=== PATIENT | male | born 1965 | race Caucasian/White ===

== ENCOUNTER 2021-09-21 05:52 | Observation (INO) ==
--- NOTE | 2021-08-23 12:55 | PAT Medication Instructions ---
Medication Instructions Date of Service August 23, 2021 Home Medications aspirin 81 mg tablet,delayed release (Adult Aspirin Regimen) 81 mg PO QAM lisinopril 10 mg tablet 10 mg PO QAM metronidazole 0.75 % topical gel 1 appln TOP BID Centrum Silver 1 tab PO QAM calcium carbonate 600 mg-vitamin D3 10 mcg (400 unit) tablet (Calcium with Vitamin D) 1 tab PO BID cetirizine 10 mg capsule (Zyrtec) 10 mg PO QAM PRN azelastine 137 mcg (0.1 %) nasal spray aerosol 2 spray INTRANASAL QAM PRN ASK your prescriber and surgeon aspirin 81 mg tablet,delayed release (Adult Aspirin Regimen) 81 mg PO QAM STOP taking 24 hours before surgery metronidazole 0.75 % topical gel 1 appln TOP BID DO NOT take the morning of surgery lisinopril 10 mg tablet 10 mg PO QAM Centrum Silver 1 tab PO QAM calcium carbonate 600 mg-vitamin D3 10 mcg (400 unit) tablet (Calcium with Vitamin D) 1 tab PO BID Take morning of surgery With a small sip of water, OTHERWISE NOTHING TO EAT OR DRINK AFTER MIDNIGHT: cetirizine 10 mg capsule (Zyrtec) 10 mg PO QAM PRN (if needed) azelastine 137 mcg (0.1 %) nasal spray aerosol 2 spray INTRANASAL QAM PRN (if needed) Take evening before surgery calcium carbonate 600 mg-vitamin D3 10 mcg (400 unit) tablet (Calcium with Vitamin D) 1 tab PO BID Other Notes If you have any questions please call us at [phone] or [phone] or [phone] or [phone]
--- NOTE | 2021-08-26 09:42 | Anesthesiology Consultation ---
Date of Service August 26, 2021 Assessment & Plan (1) Encounter for pre-operative examination: - radiological technician 07/29/21 [place]: "...We previously cleared his allergies to penicillin and Lomotil. However, he had a positive skin test to guaifenesin and dextromethorphan in combination. I recommended he just avoid these moving forward. However, if there is a need to further sort this out we can get a cold medicine preparation that has each 1 individually so we can determine exactly what he is allergic to..." - COVID screening: Per assessment on 08/26/2021: Travel screen-[email or web address] 08/21-08/22, no known COVID-19 positive contacts or current COVID- 19 related symptoms in past 2 weeks. Pt vaccinated. Surgeon arranging preop COVID testing, scheduled 09/17/2021. Awaiting results. Chart Review Chart Review: Acceptable Risk for Surgery and Patient seen in Pre Admission Testing Teaching & Discussion Pre-Anesthesia Teaching/Discussion Notes: Instructed NPO after midnight before surgery, except medications with 15 cc of water. Medication instructions provided according to the PAT guidelines. History Surgery Operation Date: 09/21/21 07:30 Proposed Procedures p Robotic Laparoscopic Assisted Radical Retropubic Prostatectomy, Possible Open, Possible Pelvic Lymph Node Dissection, Possible Suprapubic Tube Placement - Pacheco Rocha MD Height/Weight Height: 5 ft 8 in Weight: 79.5 kg Allergies Allergy/AdvReac Type Severity Reaction Status Date / Time dextromethorphan Allergy positive Verified 08/26/21 09:39 skin test guaifenesin [From Mucinex] Allergy as a Verified 08/23/21 08:32 child, rash -> allergy tested confirmed Medications Home Medications Medication Instructions Recorded Confirmed Last Taken aspirin 81 mg tablet,delayed 81 mg PO QAM 02/05/19 08/23/21 Unknown release (Adult Aspirin Regimen) lisinopril 10 mg tablet 10 mg PO QAM 02/05/19 08/23/21 Unknown metronidazole 0.75 % topical gel 1 appln TOP BID 02/05/19 08/23/21 Unknown multivit with min-folic 1 tab PO QAM 03/29/19 08/23/21 Unknown acid-lutein 400 mcg-250 mcg chewable tablet (Centrum Silver) calcium carbonate 600 mg-vitamin 1 tab PO BID 07/21/21 08/23/21 Unknown D3 10 mcg (400 unit) tablet (Calcium with Vitamin D) cetirizine 10 mg capsule (Zyrtec) 10 mg PO QAM PRN 07/21/21 08/23/21 Unknown azelastine 137 mcg (0.1 %) nasal 2 spray INTRANASAL QAM PRN 08/23/21 08/23/21 Unknown spray aerosol Past Medical History Medical History (Updated 08/26/21 @ 09:54 by Deborah Montoya PA-C) Allergic rhinitis BPH (benign prostatic hyperplasia) H/O allergy to penicillin negative allergy test. Hypertension controlled, stable per pt Prostate cancer (06/18/21) Patient denies h/o stroke, seizures, heart attack, heart failure, DM, blood clots or blood transfusions. Exercise / Class Metabolic Activity II 4-5 Yardwork/Stairs/Walk up hill (denies CP or SOB with 1 FOS) Past Family History Family History Mother , 80yo Kidney stones Colorectal cancer Pacemaker Stroke Mini stroke Sister Kidney stones Grandfather Cancer Lung Father Hypertension Stroke Mini stroke Brother No problems noted. Brother No problems noted. Other No family history of adverse response to anesthesia Past Surgical History Surgical History History of colonoscopy Past Anesthesia History No Hx of Anesthesia Complications and No Family Hx of Anesthesia Complications History of PONV No Hx of PONV and No Hx of Motion Sickness Social History Smoking Status: Never smoker Do You Dip or Chew Tobacco: No Hx Alcohol Use: Yes alcohol intake frequency: a few times a month Hx Substance Use: No substance use type: does not use Review of Systems Patient denies chest pain, shortness of breath, dyspnea on exertion, snoring, witnessed apneas, reflux, fever, chills, cough, wheezing, or palpitations. Physical Exam Vital Signs Vitals BP 127/86 P 67 TEMP 98.6 SP02 99% on RA RESP 17 Physical Full cervical extension range of motion without pain TMD 3.5 finger breaths Mallampati Score 2 Dentition: intact, several missing teeth; denies chipped or loose teeth, caps/crowns, implants or bridges Lungs: normal respiratory effort. Clear throughout to auscultation, no adventitious breath sounds Cardiac: regular rate and rhythm, no murmurs noted Carotid arteries: negative bruit bilat Lab Results Anesthesia Preop Results Results Anesthesia Widget: WBC 4.86 K/uL (4.8-10.8) 08/26/21 Hgb 14.7 g/dL (14.0-18.0) 08/26/21 Hct 44.2 % (42-52) 08/26/21 Plt 270 K/uL (130-400) 08/26/21 Na 136 mmol/L (136-145) 08/26/21 K 4.2 mmol/L (3.5-5.1) 08/26/21 Cl 100 mmol/L (98-107) 08/26/21 CO2 31 mmol/L (21-32) 08/26/21 BUN 15 mg/dl (6-23) 08/26/21 Creat 1.07 mg/dl (0.6-1.4) 08/26/21 Glucose Level 84 mg/dl (70-99(Fasting)) 08/26/21 Urine Color Yellow 08/26/21 Urine Appearance Clear (Clear) 08/26/21 Urine pH 8.0 (4.5-7.5) H 08/26/21 Urine Specific Mikana 1.005 (1.000-1.030) 08/26/21 Urine Protein Negative (Negative) 08/26/21 Urine Glucose (UA) Negative (Negative) 08/26/21 Urine Ketones Negative (Negative) 08/26/21 Urine Blood Negative (Negative) 08/26/21 Urine Nitrite Negative (Negative) 08/26/21 Urine Bilirubin Negative (Negative) 08/26/21 Urine Urobilinogen Negative (Negative) 08/26/21 Urine Leukocyte Esterase Negative (Negative) 08/26/21 Blood Type B Negative 08/26/21 Antibody Screen NEGATIVE 08/26/21 Testing Electrocardiogram Date: 08/26/21 NSR, rate 67 bpm Chest X-Ray Date: 08/26/21 Lung volumes are normal. Lungs are clear. There is no pneumothorax or pleural effusion. Cardiac size is normal. Mediastinal contours are normal. There is no evidence for pulmonary edema. Mild S-shaped scoliosis of the thoracic spine is incidentally noted. IMPRESSION: No acute cardiopulmonary findings. Other Testing Bone scan nuclear medicine 07/05/21 IMPRESSION: No suspicious areas of radiotracer uptake within the axial or appendicular skeleton to suggest metastatic disease.
[2021-09-21] MEDS ORDERED: LR 15ML/HR IV SCH (06:00)
[2021-09-21] MEDS ORDERED: LACTATED RINGER'S 1,000 ML IV SCH (06:00)
[2021-09-21] MEDS ORDERED: HEPARIN SOD 5,000 UNIT/0.5 ML VIAL SQ SCH (06:00)
[2021-09-21] MEDS ORDERED: ePHEDrine sulfate 50 MG/ML AMP IV PRN (07:00)
[2021-09-21] MEDS ORDERED: fentaNYL citrate 100 MCG/2 ML VIAL IV PRN (07:00)
[2021-09-21] MEDS ORDERED: ATROPINE SULFATE 0.1 MG/ML 10ML SYR IV PRN (07:00)
[2021-09-21] MEDS ORDERED: ONDANSETRON INJ 2 MG/ML 2 ML VIAL IV PRN ×2 (07:00→12:28)
[2021-09-21] MEDS ORDERED: DEXAMETHASONE SOD INJ 4 MG/ML VIAL ONE (07:04)
[2021-09-21] MEDS ORDERED: ONDANSETRON INJ 2 MG/ML 2 ML VIAL ONE (07:04)
[2021-09-21] MEDS ORDERED: ROCURONIUM BROMIDE 10 MG/ML 5 ML VIAL IV ONE ×5 (07:04→09:08)
[2021-09-21] MEDS ORDERED: PROPOFOL IV EMULSION 10 MG/ML 20 ML VIAL IV ONE (07:04)
[2021-09-21] MEDS ORDERED: PHENYLEPHRINE 100MCG/ML 5ML SYR ONE (07:04)
[2021-09-21] MEDS ORDERED: ePHEDrine sulfate 50 MG/ML SYR ONE (07:04)
[2021-09-21] MEDS ORDERED: NEOSTIGMINE METHYLSULFATE 1 MG/ML 10ML VIAL ONE (07:04)
[2021-09-21] MEDS ORDERED: GLYCOPYRROLATE 0.2 MG/ML VIAL ONE (07:04)
[2021-09-21] MEDS ORDERED: LIDOCAINE 2% MPF LOCAL 5 ML VIAL INFIL ONE (07:04)
[2021-09-21] MEDS ORDERED: fentaNYL citrate 100 MCG/2 ML VIAL ONE (07:05)
[2021-09-21] MEDS ORDERED: MIDAZOLAM HCL 1 MG/ML 2ML VIAL ONE (07:05)
[2021-09-21] MEDS ORDERED: BUPIVACAINE 0.5 % 5 MG/1 ML MPF 30ML VIAL ONE (07:18)
--- NOTE | 2021-09-21 07:25 | History & Physical Report ---
Date of Service September 21, 2021 Assessment & Plan (1) Prostate cancer: Plan Presenting for robotic prostatectomy risks, benefits, and expectations reviewed History of Present Illness Primary Care Provider: Diogenes Pope MD Prostate cancer presenting for prostatectomy Allergies Allergy/AdvReac Type Severity Reaction Status Date / Time dextromethorphan Allergy positive Verified 09/21/21 06:44 skin test guaifenesin [From Mucinex] Allergy as a Verified 09/21/21 06:44 child, rash -> allergy tested confirmed Home Medications Medication Instructions Recorded Confirmed Type aspirin 81 mg tablet,delayed 81 mg PO QAM 02/05/19 09/21/21 History release (Adult Aspirin Regimen) lisinopril 10 mg tablet 10 mg PO QAM 02/05/19 09/21/21 History metronidazole 0.75 % topical gel 1 appln topical BID 02/05/19 09/21/21 History multivit with min-folic 1 tab PO QAM 03/29/19 09/21/21 History acid-lutein 400 mcg-250 mcg chewable tablet (Centrum Silver) calcium carbonate 600 mg-vitamin 1 tab PO BID 07/21/21 09/21/21 History D3 10 mcg (400 unit) tablet (Calcium with Vitamin D) cetirizine 10 mg capsule (Zyrtec) 10 mg PO QAM PRN seasonal allergies 07/21/21 09/21/21 History azelastine 137 mcg (0.1 %) nasal 2 spray intranasal QAM PRN 08/23/21 09/21/21 History spray aerosol seasonal congestion Past Med/Surg History Medical History Allergic rhinitis BPH (benign prostatic hyperplasia) H/O allergy to penicillin negative allergy test. Hypertension controlled, stable per pt Prostate cancer (06/18/21) Surgical History History of colonoscopy Family History Mother , 80yo Kidney stones Colorectal cancer Pacemaker Stroke Mini stroke Sister Kidney stones Grandfather Cancer Lung Father Hypertension Stroke Mini stroke Brother No problems noted. Brother No problems noted. Other No family history of adverse response to anesthesia Social History (Updated 07/21/21 @ 09:09 by Reta Garza RN) Smoking Status: Never smoker Second Hand Exposure: No; Do You Dip or Chew Tobacco: No; Tobacco Cessation Education Requested by Patient: No Hx Alcohol Use: Yes Hx Substance Use: No Preferred Language: Kosovan Communication Ability: Effective Visual Impairment: No Limitations Hearing Ability: Normal Bench Assembler Required: No Beliefs That Will Affect Care: None marital status: Single Current Living Situation: Parent Current Living Situation Comment: father lives with patient current occupational status: retired current occupation: From [employer] How many Children do You have: 0 Other Information That Helps Us Care for You: No Feels Safe at Home: Yes Safety Concerns: Feels Safe At This Time caffeine: No during the past year weight has: remained stable Assistive Devices: Glasses Physical Exam Constitutional: well developed and well nourished Neck: neck nontender Respiratory: normal respiratory effort; no respiratory distress and does not use accessory muscles Cardiovascular: Rate/Rhythm: regular rate Vessels: radial pulses present Extremities: no edema Gastrointestinal (Abdomen): Inspection/Auscultation: abdomen normal to inspection Percussion/Palpation: abdomen soft; abdomen nontender and no guarding Musculoskeletal: Head/Neck/Chest: normocephalic and head atraumatic Extremi ties: extremities normal to inspection Skin: no rashes and no lesions Trauma: no evidence of skin trauma Neurologic: awake; not obtunded Speech / Cognition: normal speech Motor/Sensory: no tremor Psychiatric: Orientation: alert and oriented x 3 Genitourinary: no CVA tenderness Lymphatic: no lymphadenopathy Results & Data ([facility]) Vital Signs (Past 12 Hours) Vital Signs Temp Pulse Resp BP Pulse Ox O2 Del Method 09/21/21 06:10 37 C 81 18 149/99 H 98 Room Air
[2021-09-21] MEDS ORDERED: BELLADONNA/OPIUM SUPP 60 MG SUPP PR ONE ×2 (07:51→08:53)
[2021-09-21] MEDS ORDERED: HYDROmorphone INJ 2 MG/ML SYR/VIAL ONE (08:02)
[2021-09-21] MEDS ORDERED: SURGICEL ABSORB HEMOSTAT 2IN X 14IN TOP ONE (09:00)
[2021-09-21] MEDS ORDERED: FLOSEAL HEMOSTATIC MATRIX 10ML TOP ONE (09:54)
--- NOTE | 2021-09-21 11:13 | Operative Report ---
PG Post Operative Report Pre & Post Diagnosis Operation Date: 09/21/21 07:30 Pre-Op Diagnosis: Prostate Cancer Post-Op Diagnosis: Prostate Cancer I identified the patient and participated in the time-out.: Yes Procedure Operation Date: 09/21/21 07:30 Actual Procedures p Robotic Laparoscopic Assisted Radical Retropubic Prostatectomy with Pelvic Lymph Node Dissection(Not Applicable) - Pacheco Rocha MD Surgeon Pacheco Rocha MD Professional Golf Tournament Player Dolores Mace Estimated Blood Loss 100 Findings Consistent with Post-Op Diagnosis Specimens 1. Prostate and seminal vesicles 2. Periprostatic fat 3. Left pelvic lymph nodes 4. Right pelvic lymph nodes Description of Procedure The patient was identified in the preoperative holding area, appropriate informed consents were reviewed and completed, and he was transported to the operating suite. Subcutaneous heparin was administered in the pre-operative holding area. Upon arrival in the operating suite, he received appropriate antibiotics and general anesthesia. He was positioned in dorsal lithotomy, a B&O suppository was inserted after digital rectal exam, and he was prepped and draped in standard fashion. A Jensen catheter was inserted in the sterile field. A Veress needle was passed per umbilicus with uniform insufflation of the abdomen to 15mmHg. He was placed in steep Trendelenburg position. A periumbilical incision was then made to accommodate a 12mm Visiport with 10mm 0degree laparoscope. Inspection of the abdomen was carried out, and there was no evidence of traumatic entry or injury secondary to the Veress needle. After confirming a clear anterior abdominal wall, ports were subsequently placed in standard robotic prostatectomy fashion without incident. To begin the robotic portion of the case, the left lateral aspect of the sigmoid was mobilized off of the left pelvic side wall to allow the pouch of Darren to be appropriately visualized. I then made an incision in the pouch of Darren, overlying the seminal vesicles. Both SVs as well as the ampullae of the vasa were entirely dissected, with the vasa transected 3cm from the prostate. The medial umbilical ligaments were then controlled with bipolar electrocautery just inferior to the umbilicus. Following cauterization, they were divided utilizing monopolar cautery. A peritoneal incision was carried from this location to the medial aspect of the internal inguinal rings bilaterally with care to avoid opening through the ring. This incision was concluded when the vas deferens was reached. Dissection of the bladder and prostate off of the posterior aspect of the pubic arch was completed allowing full visualization of the prostate. The fat overlying the prostate was removed en bloc and passed off the table as a specimen labeled "periprostatic fat". The endopelvic fascia was cleared during this portion of the procedure, and subsequently opened - first on the right and then the left. The incision through the endopelvic fascia began near the prostate-bladder junction and was carried to the apex with extreme care to preserve all lateral levator musculature as well as the periurethral musculature and sphincter complex. I additionally preserved the puboprostatic ligaments. I then controlled the DVC with a 2-0 V-lock suture in overlapping/figure of 8 fashion. The lymph node dissection was then conducted. External iliac vessels were identified on the pelvic side wall. The packet of fat and lymphatic tissue that resides just under the iliac vein was elevated and off of the vein with a split and roll technique. The packet was dissected laterally to the circumflex vein and distally to the obturator nerve which was preserved. The proximal aspect of the packet was carried towards the bifurcation of the iliac vessels. A combination of monopolar and bipolar cautery were used to assist with control. After completing the dissection on both sides, the packets were collected and passed off of the table as specimens labeled "pelvic lymph nodes". My attention then returned to the prostate, with identification of the bladder neck aided by gentle traction on the Jensen catheter and lateral to medial pressure at the presumed level of the bladder neck with the robotic instruments. An anterior cystotomy was made, the Jensen balloon deflated and the catheter guided through the incision to allow anterior retraction. I attempted to preserve maximal bladder neck musculature as I circumferentially dissected around the bladder neck. After incision through the posterior aspect of the mucosa, the dissection was carried through detrusor muscle until the bilateral ampullae of the vasa were identified. The previously dissected vasa and SVs were brought through the incision and used to elevated the prostate anteriorly. A posterior plane behind the prostate was then developed - splitting Denonvilliers's fascia. This dissection was carried as far as possible towards the apex as well as far as possible laterally. An incision in the lateral prostatic fascia was then made bilaterally to facilitate control of the vascular pedicles and preservation of the nerve bundles. Vasculature running along the posterior/lateral aspect of the prostate was preserved as well as the tissue containing the nerves. The pedicles were then controlled with a series of Weck clips. The apical attachments of the prostate were remaining at that stage. The DVC was divided after control with bipolar cautery over the prostate. Continuous inspection from anterior and lateral views allowed me to closely follow the apical contour of the prostate and maximally preserve urethral length and tissue. The prostate was entirely freed at that point, and collected in an EndoCatch bag before being moved out of the field of vision. Hemostasis was confirmed and anastomosis of the bladder and urethra was completed utilizing a double armed V- Lock stitch. A new Jensen catheter was inserted and the anastomosis tested with irrigation. There was no evidence of leak. A karin style stitch was placed bilaterally to functionally marsupialize the area of the lymph node dissection. The robot was undocked, the specimen extracted through expansion of the mathew- umbilical camera port. The fascia was closed with a series of 0-Ethibond figure of 8 stitches. The right special ed assistant port was closed in two layers - with a figure of 8 0-Ethibond to reapproximate the fascia followed by 4-0 Monocryl to close the skin. Monocryl was used to close all other skin incisions. All wounds were dressed with Dermabond. The case was concluded and the patient taken to the PACU in stable condition. Dolores Mace assisted from incision to closure and throughout the entire case. I attest to the content of the Intraoperative Record and any orders documented therein. Any exceptions are noted below.
[2021-09-21 11:36] LABS: Hematocrit (blood only) 42.6 % (40.1-51.0); Hemoglobin 13.9 g/dl (14.0-18.0); Mean Corpuscular Hemoglobin 27.9 pg (25.0-34.0); Mean Corpuscular Hgb Conc 32.6 g/dL (32.0-36.0); Mean Corpuscular Volume 85.4 fL (80.0-100.0); Mean Platelet Volume 9.1 fL (9.4-12.4); Platelet Count 237 K/uL (130-400); RDW Coefficient of Variation 12.3 % (11.5-14.5); RDW Standard Deviation 37.8 fL (36.4-46.3); Red Blood Count 4.99 M/uL (4.63-6.08); White Blood Count 8.52 K/ul (4.8-10.8)
[2021-09-21 12:02] LABS: BUN Creatinine Ratio 10.9 (10-20); Calcium 8.8 mg/dl (8.5-10.1); Creatinine Clr Calc Pharmacy 78.1 ml/min; Est GFR (African American) 95.3 ml/min; Est GFR (Non-African American) 82.2 ml/min; Potassium 4.1 mmol/L (3.5-5.1)
[2021-09-21 12:03] LABS: Basophils # (auto) 0.01 K/uL (0-0.2); Basophils % (auto) 0.1 %; Immature Granulocytes # (auto) 0.02 K/uL (0.00-0.02); Immature Granulocytes % (auto) 0.2 %; Lymphocytes # (auto) 0.61 K/uL (1.2-3.4); Lymphocytes % (auto) 7.2 %; Monocytes # (auto) 0.12 K/uL (0.24-0.82); Monocytes % (auto) 1.4 %; Neutrophils # (auto) 7.76 K/uL (1.4-6.5); Neutrophils % (auto) 91.1 %
[2021-09-21] MEDS ORDERED: MoRPHine SULFATE 2 MG/ML CARP IV PRN (12:28)
[2021-09-21] MEDS ORDERED: MoRPHine SULFATE 4 MG/ML 1 ML CARP\\VIAL IV PRN (12:28)
[2021-09-21] MEDS ORDERED: oxyCODONE HCL IR 5 MG TAB (IMMEDIATE RELEASE) PO PRN ×2 (12:28)
--- NOTE | 2021-09-21 12:44 | Anesthesiology Progress Note ---
Date of Service September 21, 2021 Anesthesia Post Procedure Vital Signs Vital Signs: Temp Pulse Pulse Resp BP BP Pulse Ox 09/21/21 12:15 98.4 F 73 14 108/71 96 09/21/21 11:45 73 13 129/77 96 09/21/21 11:55 98.8 F 78 13 112/73 98 09/21/21 11:35 68 12 120/67 96 09/21/21 11:25 76 13 121/73 100 09/21/21 11:15 68 16 127/74 100 09/21/21 11:09 97.5 F L 81 15 127/74 94 09/21/21 06:10 98.6 F 81 18 149/99 H 98 O2 Del Method O2 Flow Rate 09/21/21 12:15 Nasal Cannula 5 09/21/21 11:45 Nasal Cannula 3 09/21/21 11:55 Nasal Cannula 3 09/21/21 11:35 Nasal Cannula 3 09/21/21 11:25 Oxymask 10 09/21/21 11:15 Oxymask 10 09/21/21 11:09 Oxymask 10 09/21/21 06:10 Room Air Transfer of Care Handoff Completed per policy Notes Mental Status: alert / awake / arousable and participated in evaluation Patient Amnestic to Procedure: Yes Nausea / Vomiting: adequately controlled Pain: adequately controlled Airway Patency, RR, SpO2: stable & adequate BP & HR: stable & adequate Hydration State: stable & adequate Anesthetic Complications: no major complications apparent and Pt Satisfied with anesthetic care
[2021-09-21] MEDS: LACTATED RINGER'S 1,000 ML IV SCH ×2 (13:31→22:53)
[2021-09-21] MEDS: ACETAMINOPHEN 325 MG TAB PO PRN ×2 (15:24→23:46)
[2021-09-21] MEDS: ceFAZolin 2000MG 2,000 MG/15 ML SYR IV SCH ×2 (15:26→22:37)
[2021-09-21] MEDS: HEPARIN SOD 5,000 UNIT/0.5 ML VIAL SQ SCH (20:18)
[2021-09-21] MEDS: DOCUSATE SODIUM 100 MG CAP PO SCH (20:19)
[2021-09-22] MEDS: ACETAMINOPHEN 325 MG TAB PO PRN (07:58)
[2021-09-22] MEDS: DOCUSATE SODIUM 100 MG CAP PO SCH (07:59)
[2021-09-22] MEDS: HEPARIN SOD 5,000 UNIT/0.5 ML VIAL SQ SCH (07:59)
[2021-09-22] MEDS ORDERED: lisinopril 10 MG TAB PO SCH (09:00)
[2021-09-22 09:13] LABS: Hematocrit (blood only) 39.4 % (40.1-51.0); Hemoglobin 13.1 g/dl (14.0-18.0); Immature Granulocytes # (auto) 0.02 K/uL (0.00-0.02); Immature Granulocytes % (auto) 0.2 %; Lymphocytes # (auto) 1.46 K/uL (1.2-3.4); Lymphocytes % (auto) 17.5 %; Mean Corpuscular Hemoglobin 28.1 pg (25.0-34.0); Mean Corpuscular Hgb Conc 33.2 g/dL (32.0-36.0); Mean Corpuscular Volume 84.5 fL (80.0-100.0); Mean Platelet Volume 9.4 fL (9.4-12.4); Monocytes # (auto) 0.95 K/uL (0.24-0.82); Monocytes % (auto) 11.4 %; Neutrophils % (auto) 70.9 %; Platelet Count 256 K/uL (130-400); RDW Coefficient of Variation 12.4 % (11.5-14.5); RDW Standard Deviation 37.9 fL (36.4-46.3); Red Blood Count 4.66 M/uL (4.63-6.08); White Blood Count 8.33 K/ul (4.8-10.8)
--- NOTE | 2021-09-22 09:38 | Urology Progress Note ---
Date of Service September 22, 2021 Assessment & Plan (1) Prostate cancer: Plan Postop day #1 status post prostatectomy Ambulate Advance diet Discharge home later this morning Admission and Anticipated Discharge Date Admission Date: September 21, 2021 Subjective No major issues overnight No nausea Tolerable pain Ambulated Urine cleared Physical Exam Physical Exam: Abdomen soft, minor bruising around his umbilical incision, urine clear Results & Data ([facility]) Vital Signs (Past 12 Hours) Vital Signs Temp Pulse Resp BP BP Pulse Ox O2 Del Method 09/22/21 07:18 36.8 C 81 16 121/73 95 Room Air 09/22/21 02:35 36.8 C 89 16 130/76 94 Room Air 09/21/21 22:56 37.1 C 91 H 17 142/95 H 96 Room Air PG Care Time/CCT Total # of Minutes Spent Total Time Spent with Patient: Total time spent is greater than 50% in coordination of care (as documented) at patient's floor/unit and/or counseling patient: Coding Level of Care Code None Diagnoses Prostate cancer C61
[2021-09-22 09:48] LABS: BUN Creatinine Ratio 12.9 (10-20); Creatinine Clr Calc Pharmacy 78.1 ml/min; Est GFR (African American) 95.3 ml/min; Est GFR (Non-African American) 82.2 ml/min
[2021-09-22] MEDS: LACTATED RINGER'S 1,000 ML IV SCH (09:55)
[2021-09-22 10:51] VITALS: BP 135/79; TEMP 98.8; O2SAT 97
--- NOTE | 2021-09-22 12:29 | Discharge Summary ---
Date of Service September 22, 2021 Admission HPI Per Admitting Provider 56-year-old male with prostate cancer presenting for prostatectomy Admission Exam Per Admitting Provider Constitutional: well developed and well nourished Neck: neck nontender Respiratory: normal respiratory effort; no respiratory distress and does not use accessory muscles Cardiovascular: Rate/Rhythm: regular rate Vessels: radial pulses present Extremities: no edema Gastrointestinal (Abdomen): Inspection/Auscultation: abdomen normal to inspection Percussion/Palpation: abdomen soft; abdomen nontender and no guarding Musculoskeletal: Head/Neck/Chest: normocephalic and head atraumatic Extremities: extremities normal to inspection Skin: no rashes and no lesions Trauma: no evidence of skin trauma Neurologic: awake; not obtunded Speech / Cognition: normal speech Motor/Sensory: no tremor Psychiatric: Orientation: alert and oriented x 3 Genitourinary: no CVA tenderness Lymphatic: no lymphadenopathy Principal Diagnosis Prostate cancer Discharge Exam Constitutional well developed and well nourished; no acute distress Respiratory no respiratory distress and no labored breathing Gastrointestinal (Abdomen) Abdomen soft, minor bruising around his umbilical incision. Dermabond intact. Neurologic moves all extremities and awake Psychiatric A+Ox3, euthymic affect Genitourinary Jensen catheter intact, draining clear yellow urine Discharge Data Allergies Allergy/AdvReac Type Severity Reaction Status Date / Time dextromethorphan Allergy positive Verified 09/21/21 06:44 skin test guaifenesin [From Mucinex] Allergy as a Verified 09/21/21 06:44 child, rash -> allergy tested confirmed Procedures Performed Operation Date: 09/21/21 07:30 Actual Procedures p Robotic Laparoscopic Assisted Radical Retropubic Prostatectomy with Pelvic Lymph Node Dissection(Not Applicable) - Pacheco Rocha MD Hospital Course (1) Prostate cancer: Plan 56yo M admitted for a robotic prostatectomy. Patient tolerated the procedure very well. He was in stable condition overnight with appropriate urine output and stable labs. Tolerated diet. Ambulated without issue. Minimal pain. He was subsequently discharged home with a Jensen catheter on postop day #1. He was in stable condition at the time of discharge. Follow-up appointments in place. Total Time Total Time Spent Total Time Spent (In Minutes): 15 Discharge Plan Discharge Items Patient Disposition: Home - Self-Care Reason For Visit: Prostate Cancer Discharge Diagnosis: Prostate Cancer Activity: Per Instructions section Lifting: No more than 25 pounds Bathing Comment: Ok to shower. No tub baths or soaks. Sexual Activity: Wait until after follow-up appointment Exercise/Sports: Wait until after follow-up appointment Driving/Machine Use: Do not drive if taking prescription pain medication Non-emergency contact: Surgeon and Urologist Call non-emergency contact if: you have any medication questions, your pain is not controlled, your pain is worsening, you have a fever, your temperature is above 101, your wound has increased redness, your wound has increased drainage and your wound pain has increased Follow-up/Referrals: Pacheco Rocha MD [Physician] - 10/11/21 2:30 pm Diogenes Pope MD [Primary Care Provider] - Urology,Nurse [FAKE FOR SCHEDULES] - 09/28/21 9:00 am (Voiding trial) Diet: Regular Addtl Attending Provider Instructions: Please take all medications as prescribed and keep all follow-ups as scheduled. Please call our office at [phone] with any questions, concerns or need to reschedule appointments for any reason. We are happy to assist you We have sent an antibiotic to your pharmacy of choice. Please begin antibiotic as prescribed the day BEFORE your scheduled voiding trial at [facility]. Please continue antibiotic every 12 hours through the day AFTER your voiding trial. You may resume your aspirin tomorrow 09/23. Activity: We recommend having someone with you for the first few days after surgery to help care for you. For the first 2 weeks after surgery, we would like you to get up and walk around your house. However, we recommend limit physical activity that would increase your heart rate. This will allow your body to rest and heal. Take naps if you feel tired. Don't lift anything heavier than 25 pounds, mow the law or ride a bicycle until your follow-up appointment. Please avoid long car rides. Home Care: Unless directed otherwise, drink 6 to 8 glasses of water a day (enough to keep your urine light colored). This will also help keep a healthy flow of urine. We recommend using a stool softener (Colace) for the first two weeks to avoid constipation. Jensen Catheter or Suprapubic Catheter care: Keep the catheter well secured with either a leg back or leg strap with large bag. Empty your bag when it's about half full. You may notice some blood in the bag. This is normal after surgery and while the catheter is in place. Use mild soap (such as Dove or Dial) and water to wash the catheter and the head of your penis daily, or more frequently if needed. Return to your normal diet, we encourage good protein intake to promote healing. You may shower as normal. Please avoid tub baths or soaking until catheter removed and incisions well healed. Wearing sweat pants while you have the catheter is recommended, they will be more comfortable. Follow-up Your follow up appointments for having your catheter removed, and follow up with your physician should already be scheduled. If you have any questions regarding this, please contact our office. Your final pathology report will be discussed at your physician follow-up appointment. Call [facility] at [phone] right away if you have any of the following: Chest pain or trouble breathing (call [phone] or go to the hospital) Fever of 101F or higher, uncontrolled vomiting Heavy bleeding, clots, or bright red blood from the catheter Catheter that falls out or stops draining Foul-smelling discharge from your catheter Redness, swelling, warmth, or increased pain at your incision site Drainage, pus, or bleeding from your incision Pending Studies at Discharge: Yes (pathology) Stand-Alone Forms: [facility], Opioid Pain Management, Smoking Cessation Medications and DC Order Prescriptions: New sulfamethoxazole-trimethoprim 200-40 mg/5 mL suspension 10 ml PO BID 3 Days Qty: 60 0RF oxycodone 5 mg/5 mL solution 5 mg PO Q8H PRN (Reason: pain) Qty: 40 0RF Continued calcium carbonate-vitamin D3 [Calcium with Vitamin D] 600 mg-10 mcg (400 unit) tablet 1 tab PO BID Zyrtec 10 mg capsule 10 mg PO QAM PRN (Reason: seasonal allergies) Centrum Silver 400-250 mcg tablet,chewable 1 tab PO QAM aspirin [Adult Aspirin Regimen] 81 mg tablet,delayed release (DR/EC) 81 mg PO QAM lisinopril 10 mg tablet 10 mg PO QAM metronidazole 0.75 % gel 1 appln TOP BID azelastine 137 mcg (0.1 %) aerosol,spray 2 spray intranasal QAM PRN (Reason: seasonal congestion) Discharge Orders: Discharge Order (Routine); Ordered 09/22/21 Ordered By: Dolores Tolentino/Other Patient Handouts: Leg Bag Care Dc Admission Data Admit Date/Time: 09/21/21 11:17 Attending Provider: Pacheco Rocha Admit Provider: Pacheco Rocha Primary Care Provider: Diogenes Pope Other Interventions: Discharge Summary Assessment (RN) Last Done: 09/22/21 12:34 Coding Level of Care Code D/C DAY MANAGEMENT <30 MINS Diagnoses Prostate cancer C61
[2021-09-22 12:36] VITALS: PULSE 78
== END 2021-09-22 14:24 | disposition home or self-care (01) | DRG 708 ==
LOC: ASU 05:52 → INTOOBSV 11:17 → 3W 11:17